=== PATIENT | male | born 1950 | race Caucasian/White ===

== ENCOUNTER 2020-05-02 11:11 | Observation (INO) | payer OTHER, MEDICARE ==
[~2020-05-02] VITALS: Ht 162.6 cm; Wt 75.0 kg
[2020-05-02 11:37] LABS: BASOPHILS % (AUTO) 0.4 % (0-1); EOSINOPHILS % (AUTO) 0.2 % (0-6); LYMPHOCYTES # (AUTO) 1.2 X10'3 (1.1-4.8); LYMPHOCYTES % (AUTO) 15.1 % (21-51); MEAN CORPUSCULAR HEMOGLOBIN 30.3 PG (27.0-31.0); MEAN CORPUSCULAR HGB CONC 34.1 g/dL (33.0-36.5); MEAN PLATELET VOLUME 8.5 FL (7.4-10.4); MONOCYTES # (AUTO) 0.3 X10'3 (0-0.9); MONOCYTES % (AUTO) 4.4 % (2-12); NEUTROPHILS # (AUTO) 6.2 X10'3 (1.8-7.7); NEUTROPHILS % (AUTO) 79.9 % (42-75); PLATELET COUNT 284 X10'3 (140-440); RED BLOOD COUNT 4.95 X10'6 (4.70-6.10); RED CELL DISTRIBUTION WIDTH 13.4 % (11.5-14.5); WHITE BLOOD COUNT 7.7 X10'3 (4.5-11.0)
[2020-05-02 11:49] LABS: ALANINE AMINOTRANSFERASE 23 U/L (12-78); ALBUMIN/GLOBULIN RATIO 1.1 (1.1-1.5); ALKALINE PHOSPHATASE 104 IU/L (46-116); ANION GAP 10 (8-16); ASPARTATE AMINO TRANSFERASE 19 U/L (10-37); BILIRUBIN,TOTAL 0.6 MG/DL (0.1-1.0); BLOOD UREA NITROGEN 18 MG/DL (7-18); BUN/CREATININE RATIO 13.1 (5.4-32.0); CALCIUM 9.1 MG/DL (8.5-10.1); CHLORIDE 111 MMOL/L (99-107); CREATININE 1.37 MG/DL (0.60-1.10); GLUCOSE 108 MG/DL (70-104); POTASSIUM 4.1 MMOL/L (3.5-5.1); SODIUM 147 MMOL/L (135-145); TOTAL CARBON DIOXIDE 26.2 MMOL/L (24-32); TOTAL PROTEIN 7.8 G/DL (6.4-8.2); eGFR 52 ML/MIN
[2020-05-02] MEDS ORDERED: nitroGLYCERIN 0.4mg SUBLingual tab SL PRN ×3 (11:50→12:40)
[2020-05-02] MEDS ORDERED: bisacodyl 10mg suppository rectal RC PRN (12:40)
[2020-05-02] MEDS ORDERED: ondansetron/PF 4mg/2ml inj IV PRN (12:40)
[2020-05-02] MEDS ORDERED: morphine 2 MG/ML inj. syringe IV PRN ×2 (12:40)
[2020-05-02] MEDS ORDERED: HYDROcodone/acetaminophen 5mg/325mg tablet PO PRN ×2 (12:40→15:20)
[2020-05-02] MEDS ORDERED: regadenoson 0.4mg/5ml syringe IV PRN (12:40)
[2020-05-02] MEDS ORDERED: metoprolol tartrate 1mg/ml inj IV PRN (12:40)
[2020-05-02] MEDS ORDERED: acetaminophen 325mg tablet PO PRN ×2 (12:40)
[2020-05-02] MEDS ORDERED: mag hydrox/Alum hydrox/simeth 30ml oral suspension PO PRN (12:40)
[2020-05-02] MEDS ORDERED: magnesium 4gm in 100ml NS 100 ML IV PRN (12:40)
[2020-05-02] MEDS ORDERED: potassium Cl 20 mEq SR tablet PO PRN ×2 (12:40)
[2020-05-02] MEDS ORDERED: HYDROcodone/acetaminophen 10/325mg tab PO PRN (12:40)
[2020-05-02] MEDS ORDERED: magnesium hydroxide 30ml (MOM) UD suspension PO PRN (12:40)
[2020-05-02] MEDS ORDERED: magnesium Cl slow-release 64mg tablet PO PRN (12:40)
[2020-05-02] MEDS ORDERED: magnesium 2GM in 50ml NS 50 ML IV PRN (12:40)
[2020-05-02] MEDS ORDERED: potassium CL 10mEq/100ml bag 100 ML IV PRN ×2 (12:40)
[2020-05-02] MEDS ORDERED: aminophylline 250mg/10ml inj. IV PRN (12:40)
[2020-05-02] MEDS ORDERED: CETI10TA15 PO (13:47)
[2020-05-02] MEDS ORDERED: ATOR20TA66 PO (13:47)
[2020-05-02] MEDS ORDERED: HYDR-4383 PO (13:47)
[2020-05-02] MEDS ORDERED: OMEP-50 PO (13:47)
--- NOTE | 2020-05-02 14:30 | NUR ---
Patient in room ED 4. I have received report from HALLE Mcdaniel and had the opportunity to ask questions and assume patient care.
[2020-05-02 14:45] VITALS: BP 175/90
--- NOTE | 2020-05-02 14:45 | NUR ---
PATIENT ARRIVED ON UNIT AT THIS TIME. VSS NO S/SX OF DISTRESS.
[2020-05-02] MEDS: normal saline 1000ml 1,000 ML IV SCH (14:55)
--- NOTE | 2020-05-02 15:12 | NUR ---
PAGER ID: [phone] MESSAGE: RM [id number] DAVISON, BP 176/85 HR 53. NO C/O CHEST PAIN. NO BP MEDS ORDERED, PLEASE ADVISE. THANKS! ANGELICA FOY [phone]
[2020-05-02] MEDS ORDERED: diphenhydrAMINE 50 mg/ml inj IV PRN (15:55)
[2020-05-02] MEDS: lisinopril 20mg tablet PO SCH (16:42)
[2020-05-02 18:00] VITALS: BP 161/91
--- NOTE | 2020-05-02 18:15 | NUR ---
Patient in room MED 313. I have received report from Leslie NERI and had the opportunity to ask questions and assume patient care.
--- NOTE | 2020-05-02 18:15 | NUR ---
Patient in room MED 313. I have received report from MORGAN RN and had the opportunity to ask questions and assume patient care.
--- NOTE | 2020-05-02 18:20 | NUR ---
Problems reprioritized. Patient report given, questions answered & plan of care reviewed with Iván RN & HALLE Rodriguez.
[2020-05-02] MEDS: K and/or MAG REPLACEMENT MC SCH (20:00)
[2020-05-02] MEDS ORDERED: temazepam 15mg capsule PO PRN (21:00)
[2020-05-02 22:00] VITALS: BP 142/81
[2020-05-03] VITALS (12 sets, daily range): BP systolic 126–172; BP diastolic 80–94
[2020-05-03] MEDS: normal saline 1000ml 1,000 ML IV SCH ×2 (00:02→08:23)
[2020-05-03 05:32] LABS: BASOPHILS % (AUTO) 0.4 % (0-1); EOSINOPHILS # (AUTO) 0.1 X10'3 (0-0.9); EOSINOPHILS % (AUTO) 0.9 % (0-6); HEMATOCRIT 41.4 % (42.0-52.0); HEMOGLOBIN 14.1 g/dl (14.0-17.9); LYMPHOCYTES # (AUTO) 1.7 X10'3 (1.1-4.8); LYMPHOCYTES % (AUTO) 19.4 % (21-51); MEAN CORPUSCULAR HEMOGLOBIN 30.9 PG (27.0-31.0); MEAN CORPUSCULAR VOLUME 90.8 FL (78-98); MEAN PLATELET VOLUME 8.6 FL (7.4-10.4); MONOCYTES # (AUTO) 0.5 X10'3 (0-0.9); MONOCYTES % (AUTO) 5.2 % (2-12); NEUTROPHILS # (AUTO) 6.6 X10'3 (1.8-7.7); NEUTROPHILS % (AUTO) 74.1 % (42-75); PLATELET COUNT 237 X10'3 (140-440); RED BLOOD COUNT 4.56 X10'6 (4.70-6.10); RED CELL DISTRIBUTION WIDTH 13.2 % (11.5-14.5); WHITE BLOOD COUNT 8.9 X10'3 (4.5-11.0)
[2020-05-03 05:56] LABS: ALANINE AMINOTRANSFERASE 22 U/L (12-78); ALBUMIN 3.4 G/DL (3.4-5.0); ALKALINE PHOSPHATASE 95 IU/L (46-116); ANION GAP 7 (8-16); ASPARTATE AMINO TRANSFERASE 16 U/L (10-37); BILIRUBIN,TOTAL 0.7 MG/DL (0.1-1.0); BLOOD UREA NITROGEN 15 MG/DL (7-18); BUN/CREATININE RATIO 11.1 (5.4-32.0); CALCIUM 8.6 MG/DL (8.5-10.1); CHLORIDE 111 MMOL/L (99-107); CHOL/HDL RATIO 3.2 (0.00-4.99); CHOLESTEROL 102 MG/DL (0-200); CREATININE 1.35 MG/DL (0.60-1.10); GLUCOSE 88 MG/DL (70-104); HDL CHOLESTEROL 32 MG/DL (35-60); LDL CHOLESTEROL 51 MG/DL (50-100); MAGNESIUM 1.7 MG/DL (1.5-2.4); POTASSIUM 3.9 MMOL/L (3.5-5.1); SODIUM 145 MMOL/L (135-145); TOTAL CARBON DIOXIDE 27.3 MMOL/L (24-32); TOTAL PROTEIN 6.8 G/DL (6.4-8.2); TRIGLYCERIDES 125 MG/DL (20-135); eGFR 53 ML/MIN
--- NOTE | 2020-05-03 06:27 | NUR ---
Problems reprioritized. Patient report given, questions answered & plan of care reviewed with Jocy NREI.
--- NOTE | 2020-05-03 06:32 | NUR ---
Orientation documentation: I have reviewed and agree with all interventions, assessments performed and documented by Jennifer NERI.
[2020-05-03] MEDS ORDERED: enoxaparin 40mg/0.4ml syringe SUBCUT SCH (08:00)
[2020-05-03] MEDS ORDERED: pantoprazole 40mg Tablet.DR PO SCH (08:00)
[2020-05-03] MEDS ORDERED: cetirizine 10mg tablet PO SCH (08:00)
[2020-05-03] MEDS: K and/or MAG REPLACEMENT MC SCH (08:00)
[2020-05-03] MEDS ORDERED: atorvastatin 20mg tablet PO SCH (08:00)
[2020-05-03] MEDS: lisinopril 20mg tablet PO SCH (08:22)
[2020-05-03] MEDS ORDERED: regadenoson 0.4mg/5ml syringe IV PRN (10:20)
[2020-05-03 16:56] LABS: H PYLORI ANTIBODY POSITIVE (Neg)
== END 2020-05-03 13:47 | disposition home or self-care (01) ==
LOC: ER 11:12 → ED HOLD 12:38 → MED 3N 14:45
PROVIDERS: ADMIT Family Medicine; ATTEND Family Medicine
DX: I20.9 Angina pectoris, unspecified (principal); E87.0 Hyperosmolality and hypernatremia; N17.9 Acute kidney failure, unspecified; I12.9 Hypertensive chronic kidney disease with stage 1 through stage 4 chronic kidney disease, or unspecified chronic kidney disease; N18.9 Chronic kidney disease, unspecified; E78.5 Hyperlipidemia, unspecified; B96.81 Helicobacter pylori [H. pylori] as the cause of diseases classified elsewhere; E78.00 Pure hypercholesterolemia, unspecified; K21.9 Gastro-esophageal reflux disease without esophagitis; G89.29 Other chronic pain; M54.9 Dorsalgia, unspecified; I35.0 Nonrheumatic aortic (valve) stenosis; K44.9 Diaphragmatic hernia without obstruction or gangrene; Z87.19 Personal history of other diseases of the digestive system; Z87.442 Personal history of urinary calculi; Z87.891 Personal history of nicotine dependence; Z90.49 Acquired absence of other specified parts of digestive tract; Z79.899 Other long term (current) drug therapy; Z88.1 Allergy status to other antibiotic agents; Z88.6 Allergy status to analgesic agent; Z88.8 Allergy status to other drugs, medicaments and biological substances; Z91.012 Allergy to eggs
CPT/HCPCS: 36415; 71045; 78452; 80053; 80061; 83735; 83880; 84484; 85025; 86677; 87081; 93005; 93017; 93306; 96360; 96361; 96372; 99285; A9500; G0378; J2785; J7030; J1650

== ENCOUNTER 2020-11-13 09:51 | Emergency (ER) | payer OTHER, MEDICARE ==
[~2020-11-13] VITALS: Ht 162.6 cm; Wt 70.0 kg
[~2020-11-13 09:51] MED LIST: ATOR20TA66 PO; CETI10TA15 PO; HYDR-4383 PO; OMEP-50 PO
[2020-11-13] MEDS ORDERED: normal saline 1000ML IV soln IVB ONE (12:45)
[2020-11-13 13:02] LABS: BASOPHILS % (AUTO) 0.4 % (0-1); EOSINOPHILS % (AUTO) 0 % (0-6); HEMOGLOBIN 14.5 g/dl (14.0-17.9); LYMPHOCYTES # (AUTO) 0.8 X10'3 (1.1-4.8); LYMPHOCYTES % (AUTO) 11.5 % (21-51); MEAN CORPUSCULAR HEMOGLOBIN 30.8 PG (27.0-31.0); MEAN CORPUSCULAR HGB CONC 34.5 g/dL (33.0-36.5); MEAN CORPUSCULAR VOLUME 89.3 FL (78-98); MEAN PLATELET VOLUME 8.6 FL (7.4-10.4); MONOCYTES # (AUTO) 0.4 X10'3 (0-0.9); MONOCYTES % (AUTO) 6.3 % (2-12); NEUTROPHILS # (AUTO) 5.4 X10'3 (1.8-7.7); NEUTROPHILS % (AUTO) 81.8 % (42-75); PLATELET COUNT 194 X10'3 (140-440); RED BLOOD COUNT 4.71 X10'6 (4.70-6.10); RED CELL DISTRIBUTION WIDTH 13.2 % (11.5-14.5); WHITE BLOOD COUNT 6.6 X10'3 (4.5-11.0)
[2020-11-13 13:21] LABS: ALANINE AMINOTRANSFERASE 38 U/L (12-78); ALBUMIN 3.9 G/DL (3.4-5.0); ALBUMIN/GLOBULIN RATIO 0.9 (1.1-1.5); ALKALINE PHOSPHATASE 78 IU/L (46-116); ANION GAP 11 (8-16); ASPARTATE AMINO TRANSFERASE 44 U/L (10-37); BILIRUBIN,TOTAL 0.7 MG/DL (0.1-1.0); BLOOD UREA NITROGEN 29 MG/DL (7-18); BUN/CREATININE RATIO 17.6 (5.4-32.0); CALCIUM 8.6 MG/DL (8.5-10.1); CHLORIDE 104 MMOL/L (99-107); CREATININE 1.65 MG/DL (0.60-1.10); GLUCOSE 106 MG/DL (70-104); POTASSIUM 3.2 MMOL/L (3.5-5.1); SODIUM 143 MMOL/L (135-145); TOTAL CARBON DIOXIDE 27.7 MMOL/L (24-32); TOTAL PROTEIN 8.3 G/DL (6.4-8.2); eGFR 42 ML/MIN
[2020-11-13 13:22] LABS: CLARITY,URINE SLIGHTLY CLOUDY (Clear); GLUCOSE, URINE NEGATIVE (Neg); KETONES,URINE NEGATIVE (Neg); LEUKOCYTE ESTERASE ,URINE NEGATIVE (Neg); NITRITES, URINE NEGATIVE (Neg); OCCULT BLOOD,URINE MODERATE (Neg); PH,URINE 5.5 (4.8-8.0); PROTEIN,URINE 100 mg/dl (Neg)
[2020-11-13] MEDS ORDERED: potassium chloride 10mEq ER tablet PO STA (13:32)
[2020-11-13 13:34] LABS: UA COLLECTION TYPE CLN CATCH MIDSTREAM
[2020-11-13 13:35] LABS: COLOR,URINE DARK YELLOW (Yellow)
[2020-11-13] MEDS ORDERED: potassium Cl 10 mEq/100mL bag IV ONE (13:35)
[2020-11-13 13:36] LABS: BACTERIA,URINE FEW /HPF (Neg); MUCUS STRANDS MODERATE /LPF (Neg); RBC,URINE 0-2 /HPF (0-2); SQUAMOUS EPITHELIAL CELL,UR FEW /LPF (FEW); WBC,URINE 0-4 /HPF (0-4)
[2020-11-13 13:37] LABS: AMORPHOUS URATES 1+
[2020-11-13 16:22] VITALS: BP 127/81
== END 2020-11-13 16:22 | disposition home or self-care (01) ==
LOC: ER 09:52
DX: U07.1 COVID-19 (principal); K44.9 Diaphragmatic hernia without obstruction or gangrene; E78.00 Pure hypercholesterolemia, unspecified; I10 Essential (primary) hypertension; K21.9 Gastro-esophageal reflux disease without esophagitis; G89.29 Other chronic pain; M54.9 Dorsalgia, unspecified; I35.0 Nonrheumatic aortic (valve) stenosis; Z88.6 Allergy status to analgesic agent; Z88.8 Allergy status to other drugs, medicaments and biological substances; Z79.899 Other long term (current) drug therapy
CPT/HCPCS: 36415; 74176; 80053; 81001; 85025; 87635; 96365; 99284; J3480; J7030; 96361; 96374

== ENCOUNTER 2021-05-31 12:15 | Emergency (ER) | payer OTHER, MEDICARE ==
[~2021-05-31] VITALS: Ht 162.6 cm; Wt 70.9 kg
[2021-05-31 12:30] VITALS: BP 121/80
[2021-05-31] MEDS ORDERED: ipratropium/albuterol 3ml nebule NEB ONE (13:00)
[2021-05-31 13:01] LABS: BASOPHILS % (AUTO) 0.3 % (0-1); EOSINOPHILS % (AUTO) 0.4 % (0-6); HEMATOCRIT 42.3 % (42.0-52.0); HEMOGLOBIN 14.5 g/dl (14.0-17.9); LYMPHOCYTES # (AUTO) 1.3 X10'3 (1.1-4.8); LYMPHOCYTES % (AUTO) 17.4 % (21-51); MEAN CORPUSCULAR HEMOGLOBIN 30.2 PG (27.0-31.0); MEAN CORPUSCULAR HGB CONC 34.3 g/dL (33.0-36.5); MEAN CORPUSCULAR VOLUME 88.1 FL (78-98); MEAN PLATELET VOLUME 8.5 FL (7.4-10.4); MONOCYTES # (AUTO) 0.4 X10'3 (0-0.9); MONOCYTES % (AUTO) 4.9 % (2-12); NEUTROPHILS # (AUTO) 5.9 X10'3 (1.8-7.7); PLATELET COUNT 233 X10'3 (140-440); RED CELL DISTRIBUTION WIDTH 13.7 % (11.5-14.5); WHITE BLOOD COUNT 7.7 X10'3 (4.5-11.0)
[2021-05-31 13:23] LABS: ALANINE AMINOTRANSFERASE 29 U/L (12-78); ALBUMIN 4.3 G/DL (3.4-5.0); ALBUMIN/GLOBULIN RATIO 1.2 (1.1-1.5); ALKALINE PHOSPHATASE 92 IU/L (46-116); ANION GAP 12 (8-16); ASPARTATE AMINO TRANSFERASE 17 U/L (10-37); BILIRUBIN,TOTAL 0.5 MG/DL (0.1-1.0); BLOOD UREA NITROGEN 30 MG/DL (7-18); BUN/CREATININE RATIO 19.9 (5.4-32.0); CALCIUM 9.3 MG/DL (8.5-10.1); CHLORIDE 109 MMOL/L (99-107); CREATININE 1.51 MG/DL (0.60-1.10); GLUCOSE 108 MG/DL (70-104); POTASSIUM 3.8 MMOL/L (3.5-5.1); SODIUM 145 MMOL/L (135-145); TOTAL CARBON DIOXIDE 23.9 MMOL/L (24-32); TOTAL PROTEIN 7.8 G/DL (6.4-8.2); eGFR 46 ML/MIN
[2021-05-31] MEDS ORDERED: ALBU18HF2 INH (13:58)
[2021-05-31] MEDS ORDERED: BECL7.3A INH (13:58)
== END 2021-05-31 14:14 | disposition home or self-care (01) ==
LOC: ER 12:15
DX: R06.02 Shortness of breath (principal); R11.2 Nausea with vomiting, unspecified; R05 Cough; R10.11 Right upper quadrant pain; I12.9 Hypertensive chronic kidney disease with stage 1 through stage 4 chronic kidney disease, or unspecified chronic kidney disease; N18.9 Chronic kidney disease, unspecified; E78.00 Pure hypercholesterolemia, unspecified; K21.9 Gastro-esophageal reflux disease without esophagitis; G89.29 Other chronic pain; F12.90 Cannabis use, unspecified, uncomplicated; Z90.49 Acquired absence of other specified parts of digestive tract; Z88.6 Allergy status to analgesic agent; Z88.8 Allergy status to other drugs, medicaments and biological substances; Z91.012 Allergy to eggs; Z79.899 Other long term (current) drug therapy
CPT/HCPCS: 36415; 71045; 80053; 83880; 85025; 93005; 94640; 99285